=== PATIENT | female | born 1960 | race Caucasian/White ===

== ENCOUNTER 2022-07-23 11:04 | Outpatient (CLI) | payer MEDICAID, SELFPAY ==
--- NOTE | 2022-07-23 11:12 | US_ITS ---
WS: [id number] RIGHT UPPER QUADRANT ULTRASOUND HISTORY: CHRONIC HEPATITIS C COMPARISON: None available. Liver: 14.6 cm in length. Normal size liver. Very difficult evaluation the entire liver due to body h abitus. There are some areas of the liver that do not appear normal and underlying mass such as hepat camryn cannot be excluded. May all be due to hepatic steatosis. Very poorly defined areas of variable ec hogenicity towards the diaphragm and RIGHT lobe. No bile duct dilatation. Portal Vein: Normal hepatopetal flow with monophasic waveform. Gallbladder: Normally distended gallbladder with no stones or wall thickening. CBD: 0.3 cm Pancreas: Poorly visualized due to body habitus. The head and body appear negative. Right kidney: 10.3 cm in length. Normal size and echogenicity. No hydronephrosis or mass. Aorta and IVC: Unremarkable abdominal aorta and IVC. No ascites. US/US gall bladder 75610 IMPRESSION: 1. Abnormal liver. Limited evaluation of the liver due to body habitus. There is variable echogenicity within the liver which needs to be further evaluated t o exclude mass such as hepatoma. Recommend follow-up liver mass CT protocol (ar terial and portal venous phases). 2. Negative gallbladder.
== END 2022-07-23 11:05 | disposition home or self-care (01) ==
PROVIDERS: Family Provider Family Medicine; Visit Provider Family Medicine
DX: B18.2 Chronic viral hepatitis C (principal); R94.5 Abnormal results of liver function studies
CPT/HCPCS: 76705

== ENCOUNTER 2022-09-09 08:43 | Outpatient (CLI) | payer MEDICAID, SELFPAY ==
--- NOTE | 2022-09-09 08:56 | CT_ITS ---
WS: [id number] CT ABDOMEN CONTRAST TECHNIQUE: Contrast enhanced CT of the abdomen with coronal and sagittal reformatted images. Venous a rterial and delayed images were obtained. CLINICAL INFORMATION: ABNORMAL LIVER ULTRASOUND COMPARISON: Ultrasound July 23, 2022 DLP: 2377.[address] scans at [facility] use at least one of these dose optimization techniques: automated e xposure control; mA and/or kV adjustment per patient size (includes targeted exams where dose is matc hed to clinical indication); or iterative reconstruction. FINDINGS: Mild diffuse fatty infiltration liver. Low-attenuation RIGHT hepatic lobe lesions just beneath the di aphragm with peripheral globular enhancement which fill-in on the delayed imaging compatible with cav ernous hemangiomas. These measure approximately 3.8 cm and 2.3 CM. No other visualized hepatic lesion s. Normal portal vein and splenic vein. Normal gallbladder. Lung bases are well aerated. Normal GE junct ion. Adrenal glands are normal. Normal renal parenchymal enhancement. No hydronephrosis. Normal pancr eatic parenchymal enhancement. Normal caliber abdominal aorta. Celiac and SMA appear patent. Tiny LEF T renal cyst. CT/CT abdomen w con* [id number] IMPRESSION: 1. Low-attenuation lesions in the RIGHT hepatic lobe just beneath the diaphrag m with imaging characteristics compatible with cavernous hemangiomas described above. 2. Mild diffuse fatty infiltration liver. 3. No other suspicious findings.
[2022-09-09] MEDS: iohexol 350 mg/mL 500 mL Btl (per mL) IV (09:34)
== END 2022-09-09 08:44 | disposition home or self-care (01) ==
PROVIDERS: PCP Family Medicine; Visit Provider Family Medicine
DX: R93.2 Abnormal findings on diagnostic imaging of liver and biliary tract (principal); K76.0 Fatty (change of) liver, not elsewhere classified
CPT/HCPCS: 74160; Q9967

== ENCOUNTER 2022-09-29 23:20 | Emergency (ER) | payer MEDICAID, SELFPAY ==
--- NOTE | 2022-09-29 23:23 | XRR_ITS ---
PROCEDURE INFORMATION: Exam: XR Left Knee Exam date and time: 09/29/2022 11:37 PM Age: 61 years old Clinical indication: Pain; Knee; Left; Additional info: Injury TECHNIQUE: Imaging protocol: Radiologic exam of the left knee. Views: 3 views. COMPARISON: No relevant prior studies available. FINDINGS: Bones/joints: No acute fracture or dislocation is noted. The skeletal structures seem age-appropriate with mild tricompartment DJD. Soft tissues: Unremarkable. XR/XR knee LT 3V* [id number] IMPRESSION: No acute findings.
[2022-09-29 23:27] VITALS: BP 125/89; PULSE 90; RESP 14; TEMP 36.6; O2SAT 95
--- NOTE | 2022-09-29 23:48 | ED_ITS ---
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 Associated symptoms: Deny chest pain, fever(s) or rash Review of Systems Const: Denies: fever(s) or chills ENMT: Denies: throat pain or dental pain Card: Denies: chest pain Resp: Denies: dyspnea GI: Denies: abdominal pain, nausea, vomiting or diarrhea Musc: Reports: extremity pain; Denies: neck pain or back pain Skin/Breast: Denies: rash Neuro: Denies: headache(s) PFSH ED PFSH: Medical History (Updated 09/29/22 @ 23:50 by Linden Mcdaniels MD) No pertinent past medical history Social History (Updated 09/29/22 @ 23:49 by Linden Mcdaniels MD) Substance/Drug Use: never Physical Exam Const: COMMON NORMALS: no acute distress and patient oriented x3 HENMT: COMMON NORMALS: normocephalic HEAD & SCALP: normocephalic Eye: COMMON NORMALS: conjunctivae normal CONJUNCTIVA: Yes conjunctivae normal Chest: COMMONS NORMALS: normal inspection of the chest Resp: COMMON NORMALS: normal respiratory effort and clear to auscultation bilaterally AUSCULTATION: clear to auscultation bilaterally Cardio: COMMON NORMALS: regular rate and regular rhythm RATE: regular rate RHYTHM: regular rhythm Extremity: NARRATIVE EXTREMITY EXAM: Slight tenderness to lateral left knee no warmth to touch no swelling distal pulses intact no calf tenderness or swelling Neuro: COMMON NORMALS: patient oriented x3 Psych: COMMON NORMALS: mental status grossly normal Skin: COMMON NORMALS: no rashes or lesions noted GENERAL SKIN EXAM: no rashes or lesions noted Course Vital Signs: Vital signs: Vital Signs Temperature 97.9 F 09/29/22 23:27 Pulse Rate 90 09/29/22 23:27 Respiratory Rate 14 05/01/23 23:27 Blood Pressure 125/89 09/29/22 23:27 Pulse Oximetry 95 09/29/22 23:27 Oxygen Delivery Me thod Room Air 09/29/22 23:27 MDM - Extremity (Nontraumatic) Medical Decision Making Patient presents with left knee pain is likely arthritic in nature x-ray here is normal exam shows no signs of DVT or septic joint will Robin wrap she is to ice we will prescribe her Naprosyn she is to follow-up with orthopedics. Differential Diagnosis Unlikely gout, cellulitis, deep venous thrombosis of upper extremity or lower extremity edema Medical Records I reviewed the patient's medical records. Discharge Plan Discharge Patient Disposition: Home Clinical Impression: Knee pain, left Prescriptions: New naproxen [Naprosyn] 500 mg tablet 500 mg PO BID PRN (Reason: pain) Qty: 20 0RF No Action metoprolol tartrate 25 mg tablet 25 mg PO BID 30 Days Qty: 60 0RF Discharge Orders: Discharge ED (Routine); Ordered 09/29/22 Ordered By: Linden Mcdaniels Referrals: Prasanna Barber MD [Primary Care Provider] - West Farias DO [Physician] - 1-3 days Discharge Diet: Advance as tolerated Discharge Activity: Resume usual activity Patient Instructions: Knee Pain (ED) Coding Level of Care Code ED Bacteriologist Industrial for Vivian Page
[2022-09-29] MEDS: naproxen 500 mg Tablet PO (23:56)
--- NOTE | 2022-09-30 08:49 | DCPLANNER ---
Addendum entered by Penelope Downing 10/14/22 15:03: This appointment was rescheduled Addendum entered by Penelope Downing 10/02/22 08:09: Patient has a follow up appointment scheduled for September at 10:00 with Amarjit Givens at ortho. Original Note: maintenance and engineering manager had message to schedule a follow up appointment for patient with ortho. maintenance and engineering manager sent patients information to the front office staff at ortho. Patients information will be printed and reviewed. Clinic will call patient with appointment information.
== END 2022-09-30 | disposition home or self-care (01) ==
PROVIDERS: Emergency Provider Emergency Medicine; PCP Family Medicine
DX: M25.562 Pain in left knee (principal)
CPT/HCPCS: 73562; 99283

== ENCOUNTER → 2022-11-06 10:44 | Outpatient (BNVA) | payer OTHER, MEDICAID, SELFPAY | PROVIDERS: PCP Family Medicine; Referring Provider Emergency Medicine; Visit Provider Nurse Practitioner Family | DX: M17.12 Unilateral primary osteoarthritis, left knee (principal); E66.9 Obesity, unspecified; Z68.43 Body mass index [BMI] 50.0-59.9, adult | CPT/HCPCS: 73560; 73565 ==

== ENCOUNTER → 2022-11-21 11:27 | Outpatient (BNVA) | payer OTHER, MEDICAID, SELFPAY | PROVIDERS: PCP Family Medicine; Visit Provider Nurse Practitioner Family | DX: M54.32 Sciatica, left side (principal); M25.552 Pain in left hip | CPT/HCPCS: 73502 ==

== ENCOUNTER → 2024-07-04 09:56 | Outpatient (BNVA) | payer MEDICARE, MEDICAID, SELFPAY | PROVIDERS: PCP Family Medicine; Visit Provider Family Medicine | DX: R50.9 Fever, unspecified (principal) | CPT/HCPCS: 87400; 87426 ==